=== PATIENT | male | born 1970 | race Caucasian/White ===

== ENCOUNTER 2022-11-12 09:04 | Emergency (ER) | payer BC, MEDICAID, OTHER, SELFPAY ==
[~2022-11-12] VITALS: Ht 172.7 cm; Wt 72.7 kg
[2022-11-12] MEDS ORDERED: AMOX875T2 PO (11:25)
[2022-11-12] MEDS ORDERED: MUCI600T31 PO (11:25)
[2022-11-12] MEDS ORDERED: VENTAER INH (11:25)
[2022-11-12 11:33] VITALS: BP 125/77; TEMP 98.1; O2SAT 99
== END 2022-11-12 11:35 | disposition home or self-care (01) ==
LOC: M ED 09:04
DX: J44.9 Chronic obstructive pulmonary disease, unspecified (principal); J06.9 Acute upper respiratory infection, unspecified; F17.210 Nicotine dependence, cigarettes, uncomplicated